=== PATIENT | male | born 1985 | race Caucasian/White ===

== ENCOUNTER 2020-12-08 19:06 | Emergency (ER) | payer OTHER ==
[~2020-12-08] VITALS: Ht 185.4 cm; Wt 130.4 kg
[2020-12-08] MEDS ORDERED: LISI-893 PO (19:20)
[2020-12-08 19:42] VITALS: BP 142/93
== END 2020-12-08 20:03 | disposition home or self-care (01) ==
LOC: EMS 19:06
DX: R51.9 Headache, unspecified (principal); F17.210 Nicotine dependence, cigarettes, uncomplicated; F15.90 Other stimulant use, unspecified, uncomplicated; I10 Essential (primary) hypertension
CPT/HCPCS: 99281; Z7502